=== PATIENT | female | born 1955 ===

== ENCOUNTER 2017-01-31 20:24 | Emergency (ER) | payer MEDICAID, OTHER ==
[2017-01-31] MEDS ORDERED: Sodium Chloride 0.9% 1,000 ML IV ONE (20:55)
[2017-01-31] MEDS ORDERED: Sodium Chloride 0.9% 1,000 ML ONE (21:06)
[2017-01-31 21:28] VITALS: RESP 18; O2SAT 98
[2017-01-31 21:30] LABS: BASO # 0.1 K/uL (0.0-0.2); BASO % 0.9 % (0.0-2.0); EOS # 0.2 K/uL (0.0-0.7); EOS % 2.5 % (0.0-4.0); HEMATOCRIT 36.8 % (34.0-47.0); LYMPH # 2.6 K/uL (1.0-4.3); LYMPH % 41.1 % (20.0-40.0); MEAN CELL VOLUME 88.5 fL (81.0-99.0); MEAN CORPUSCULAR HGB CONC 32.7 g/dL (33.0-37.0); MEAN PLATELET VOLUME 10.4 fL (7.2-11.7); MONO # 0.6 K/uL (0.0-0.8); MONO % 8.7 % (0.0-10.0); RED CELL DISTRIBUTION WIDTH 14.8 % (11.5-14.5); WHITE BLOOD COUNT 6.4 K/uL (4.8-10.8)
[2017-01-31 21:34] LABS: RBC URINE < 1 /hpf (0-3); URINE BACTERIA RARE (<OCC); URINE BILIRUBIN NEGATIVE (NEGATIVE); URINE BLOOD NEGATIVE (NEGATIVE); URINE COLOR Yellow (YELLOW); URINE GLUCOSE (UA) 3+ mg/dL (Normal); URINE KETONE NEGATIVE (NEGATIVE); URINE PROTEIN NEGATIVE (NEGATIVE); WBC URINE 3 /hpf (0-5)
[2017-01-31 21:39] LABS: CHLORIDE 98 mmol/L (98-107); SODIUM 135 mmol/L (132-148)
[2017-01-31 21:40] LABS: POTASSIUM 4.1 mmol/L (3.6-5.2)
[2017-01-31 21:42] LABS: ALB/GLOB RATIO 1.7 (1.0-2.1); ALKALINE PHOSPHATASE 83 U/L (38-126); ALT/SGPT 32 U/L (9-52); AST/SGOT 21 U/L (14-36); BILIRUBIN,TOTAL 0.5 mg/dL (0.2-1.3); BLOOD UREA NITROGEN 17 mg/dL (7-17); CARBON DIOXIDE 28 mmol/L (22-30); GFR AFRICAN-AMERICAN > 60; GLUCOSE,RANDOM 239 mg/dL (65-105); TOTAL PROTEIN 6.7 g/dL (6.3-8.3); URINE LEUKOCYTE ESTERASE NEGATIVE Leu/uL (Negative)
[2017-01-31 21:43] LABS: ALCOHOL SERUM < 10 mg/dl (0-10); CALCIUM 9.1 mg/dl (8.6-10.4)
--- NOTE | 2017-01-31 22:29 | C.PDOC ---
History Of Present Illness 61 year old female who presents to the ER for a complaint of a colicky epigastric pain that began today ands lasted 45 minutes. Patient has a Hx of panic disorder; denies nausea, vomiting, fever, or chills. Time Seen by Provider: 01/31/17 20:50 Chief Complaint (Nursing): Abdominal Pain History Per: Patient History/Exam Limitations: no limitations Onset/Duration Of Symptoms: Mins Current Symptoms Are (Timing): Still Present Location Of Pain/Discomfort: Epigastric Radiation Of Pain To:: None Quality Of Discomfort: Unable To Describe Associated Symptoms: denies: Fever, Chills, Nausea, Vomiting Exacerbating Factors: None Alleviating Factors: None Recent travel outside of the [place]: No Abnormal Vaginal Bleeding: No Past Medical History Reviewed: Historical Data, Nursing Documentation, Vital Signs Vital Signs: Last Vital Signs Temp 98.1 F 01/31/17 22:43 Pulse 64 01/31/17 22:43 Resp 18 01/31/17 22:43 BP 147/66 01/31/17 22:43 Pulse Ox 98 01/31/17 22:43 - Medical History PMH: Depression, Diabetes, HTN, Hypercholesterolemia Surgical History: No Surg Hx - [facility] Procedures CLOSURE SKIN & SUBCUTANEOUS NEC (06/22/14) TETANUS TOXOID ADMINIST (06/22/14) Family History: States: Unknown Family Hx - Social History Hx Tobacco Use: Yes Hx Alcohol Use: No Hx Substance Use: No - Immunization History Hx Tetanus Toxoid Vaccination: No Hx Influenza Vaccination: No Hx Pneumococcal Vaccination: No Review Of Systems Constitutional: Negative for: Fever, Chills Gastrointestinal: Positive for: Abdominal Pain. Negative for: Nausea, Vomiting Physical Exam - Physical Exam Appears: Non-toxic, Other (Tremulous, Anxious) Skin: Normal Color, Warm, Dry Head: Atraumatic, Normacephalic Oral Mucosa: Moist Chest: Symmetrical, No Tenderness Cardiovascular: Rhythm Regular, No Murmur Respiratory: Normal Breath Sounds, No Rales, No Rhonchi, No Wheezing Gastrointestinal/Abdominal: Soft, No Tenderness, Other (Obese) Neurological/Psych: Oriented x3, Normal Speech, Normal Cognition ED Course And Treatment - Laboratory Results Result Diagrams: 01/31/17 21:22 01/31/17 21:22 Lab Interpretation: Normal (lipase neg, UA neg, tox neg) O2 Sat by Pulse Oximetry: 98 (Room air) Pulse Ox Interpretation: Normal - Radiology CXR: Interpreted by Me CXR Interpretation: Yes: No Acute Disease - Other Rad abd x 2 X-Ray: Interpreted by Me (+FOS) Progress Note: Abdominal x-ray ordered. Toradol, ativan, and IV fluids administered. Reevaluation Time: 22:28 Reassessment Condition: Improved Medical Decision Making Medical Decision Making: constipation, no pancreatitis Disposition Doctor Will See Patient In The: Office Counseled Patient/Family Regarding: Studies Performed, Diagnosis - Disposition [facility]errals: [facility]Outside] [facility] Disposition: HOME/ ROUTINE Disposition Time: 22:28 Condition: GOOD Additional Instructions: compra y teri un purgante- botella de Citrato de Magnesio, ahora- y re-evalua armstrong molestia del abdomen despues de usar el ed 2-3 veces Sigue michael dieta saludable con 7 verduras y frutas crudas diarios Sigue en [facility] ([place]) Instructions: Constipation (ED) Forms: [employer] (Albanian) Print Language: DANISH - Clinical Impression Clinical Impression: Abdominal pain - Scribe Statement The provider has reviewed the documentation as recorded by the Scribe Chepe Parks All medical record entries made by the Scribe were at my direction and personally dictated by me. I have reviewed the chart and agree that the record accurately reflects my personal performance of the history, physical exam, medical decision making, and the department course for this patient. I have also personally directed, reviewed, and agree with the discharge instructions and disposition.
[2017-01-31 22:44] VITALS: BP 147/66; PULSE 64; TEMP 98.1
--- NOTE | 2017-02-01 11:34 | RAD ---
PROCEDURE: Radiographs of the chest and abdomen (obstructive series) HISTORY: abd pain COMPARISON: No prior. TECHNIQUE: AP radiograph of the chest, with upright and supine radiographs of the abdomen. FINDINGS: CHEST: Lungs: Clear. Cardiovascular: Normal size heart. No pulmonary vascular congestion. Pleura: No pleural fluid. No pneumothorax. Other findings: None. ABDOMEN AND PELVIS: Bowel: Nonobstructive bowel gas pattern is identified with prominent retained fecal material identified at the left hemicolon, moderate of the ascending colon. Free air: None. Bones: Unremarkable. Other findings: None. IMPRESSION: Nonobstructive bowel gas pattern. Prominent retained fecal material is identified in the left hemicolon. Chest radiograph appears unremarkable as discussed above.
== END 2017-01-31 22:45 | disposition home or self-care (01) ==
LOC: C.ER 20:24
DX: R10.9 Unspecified abdominal pain (principal); I10 Essential (primary) hypertension; E11.9 Type 2 diabetes mellitus without complications; E78.00 Pure hypercholesterolemia, unspecified; F17.210 Nicotine dependence, cigarettes, uncomplicated
CPT/HCPCS: 74022; 80053; 80320; 80324; 80345; 80346; 80349; 80353; 80358; 80361; 81001; 82948; 83690; 83992; 84703; 85025; 96361; 96374; 96375; 99285; J1885; J2060; J7040

== ENCOUNTER 2017-02-18 06:20 | Day surgery (SDC) | payer OTHER ==
[2017-02-18 07:27] VITALS: O2SAT 100
[2017-02-18] MEDS ORDERED: Propofol 10 mg/ml Inj (20 ML) ONE (08:39)
--- NOTE | 2017-02-18 08:45 | CP.SDSHP ---
Same Day Surgery H & P - History Proposed Procedure: egd Pre-Op Diagnosis: epigastric pain/tenderness - Previous Medical/Surgical History Cardiac: Hypertension, Other (hypercholesterolemia, Gastritis) Endocrine/Metabolic: Diabetes Misc: Other (Gerd, Fibromyalgia, Colon polyps, DJD) Pain: 3. - Allergies Allergies: Allergies Penicillins Allergy (Verified 02/18/17 07:02) RASH - Physical Exam Vital Signs: Vital Signs 02/18/17 06:45 Temperature 97.8 F Pulse Rate 69 Respiratory 19 Rate Blood Pressure 121/58 L O2 Sat by Pulse 100 Oximetry Mental Status: Alert & Oriented x3 Neuro: WNL Heart: WNL Lungs: WNL GI: WNL - Impression Impression: epigastric pain/tenderness Pt. Evaluated Today:Candidate for Anesthesia & Procedure: Yes - Date & Time Date: 02/18/17 Time: 08:44 Short Stay Discharge - Short Stay Discharge Admitting Diagnosis/Reason for Visit: EPIGASTRIC PAIN,EPIGASTRIC ABDOMINAL TENDERNESS,GA Disposition: HOME/ ROUTINE
[2017-02-18 10:38] VITALS: TEMP 97
[2017-02-18 10:41] VITALS: PULSE 65; RESP 20
[2017-02-18 10:53] VITALS: BP 128/52
== END 2017-02-18 10:54 | disposition home or self-care (01) ==
LOC: C.ENDO 06:20
PROVIDERS: ATTEND Internal Medicine Gastroenterology
DX: K21.0 Gastro-esophageal reflux disease with esophagitis (principal); R10.816 Epigastric abdominal tenderness; K29.60 Other gastritis without bleeding; M79.7 Fibromyalgia
CPT/HCPCS: 43239; 82948; 88305; 88312; 88313; 88342; J2704; J3010

== ENCOUNTER 2017-09-18 11:08 | Emergency (ER) | payer MEDICAID, OTHER ==
[2017-09-18 11:18] VITALS: O2SAT 99
[2017-09-18] MEDS ORDERED: Albuterol-Ipratrop 3 mg / 0.5 (3 ml) UD IH STA (12:00)
[2017-09-18] MEDS ORDERED: Albuterol-Ipratrop 3 mg / 0.5 (3 ml) UD ONE (12:07)
--- NOTE | 2017-09-18 13:18 | C.PDOC ---
History Of Present Illness The patient reports 1 week history of cough, nasal congestion, which is associated with bodyaches. Patient also reports that she has been having a pain in the right elbow over the past several weeks. Denies injury/trauma, fever, nausea, vomiting, diarrhea, chest pain, SOB. Time Seen by Provider: 09/18/17 11:20 Chief Complaint (Nursing): Flu-like Symptoms History Per: Patient History/Exam Limitations: no limitations Past Medical History Reviewed: Historical Data, Nursing Documentation, Vital Signs Vital Signs: Last Vital Signs Temp 97.9 F 09/18/17 13:37 Pulse 84 09/18/17 13:37 Resp 18 09/18/17 13:37 BP 116/66 09/18/17 13:37 Pulse Ox 99 09/18/17 18:54 - Medical History PMH: Anemia, Arthritis, Colonic Polyps, Depression, Diabetes, Gastritis, HTN, Hypercholesterolemia, Osteoporosis Denies: Chronic Kidney Disease Surgical History: Endoscopy - [facility] Procedures CLOSURE SKIN & SUBCUTANEOUS NEC (06/22/14) TETANUS TOXOID ADMINIST (06/22/14) Family History: States: No Known Family Hx - Social History Hx Tobacco Use: Yes Hx Alcohol Use: No Hx Substance Use: No - Immunization History Hx Tetanus Toxoid Vaccination: No Hx Influenza Vaccination: Yes (04/2017) Hx Pneumococcal Vaccination: No Review Of Systems Constitutional: Negative for: Fever ENT: Positive for: Nose Congestion Cardiovascular: Negative for: Chest Pain Respiratory: Positive for: Cough. Negative for: Shortness of Breath Gastrointestinal: Negative for: Vomiting Musculoskeletal: Positive for: Other (elbow pain) Skin: Negative for: Rash Neurological: Negative for: Weakness, Numbness, Headache, Dizziness Physical Exam - Physical Exam Appears: Non-toxic, No Acute Distress Skin: Normal Color, Warm, Dry, No Rash Head: Atraumatic, Normacephalic Eye(s): bilateral: PERRL Nose: Normal Oral Mucosa: Moist Lips: Normal Appearing Neck: Normal ROM, Supple Cardiovascular: Rhythm Regular, Friction Rub, No Murmur Respiratory: No Decreased Breath Sounds, No Accessory Muscle Use, Wheezing ( scant, expiratory B/L) Gastrointestinal/Abdominal: Soft, No Tenderness Back: Normal Inspection, No CVA Tenderness Extremity: Normal ROM, No Deformity, No Swelling Neurological/Psych: Oriented x3, Normal Speech, Normal Motor Gait: Steady ED Course And Treatment O2 Sat by Pulse Oximetry: 99 (on RA) Pulse Ox Interpretation: Normal Disposition - Disposition Referrals: Mira Zavala [Staff Provider] - Disposition: HOME/ ROUTINE Disposition Time: 13:14 Condition: GOOD Additional Instructions: Follow up with the medical doctor within 1-2 days. Return if worsened. Prescriptions: Acetaminophen [Tylenol] 325 mg PO Q6 PRN #30 tab PRN Reason: Pain, Mild (1-3) Albuterol HFA [Ventolin HFA 90 mcg/actuation (8 g)] 1 puff IH Q6 #1 inhaler Loratadine [Claritin] 10 mg PO DAILY #10 tab predniSONE [Prednisone] 20 mg PO BID #10 tab Spacer, Inhalation [Aerochamber] 1 dev IH Q4 #1 dev Instructions: Acute Bronchitis Forms: [employer] (Slovenian) - Clinical Impression Clinical Impression: Bronchitis
[2017-09-18 13:37] VITALS: BP 116/66; PULSE 84; RESP 18; TEMP 97.9
--- NOTE | 2017-09-18 13:57 | RAD ---
HISTORY: Coughing and wheezing. COMPARISON: Comparison made with chest radiograph 01/02/2017 TECHNIQUE: Chest PA and lateral FINDINGS: LUNGS: The interstitial markings are slightly increased and coarsened with a few scattered peribronchial cuffing changes. Rule out sequela of reactive/inflammatory airway disease or viral illness. PLEURA: No significant pleural effusion identified. No pneumothorax apparent. CARDIOVASCULAR: Heart size within range of normal. OSSEOUS STRUCTURES: Mild multilevel degenerative spondylosis of the thoracic spine. . VISUALIZED UPPER ABDOMEN: Normal. OTHER FINDINGS: None. IMPRESSION: The interstitial markings are slightly increased and coarsened with a few scattered peribronchial cuffing changes. Rule out sequela of reactive/inflammatory airway disease or viral illness.
--- NOTE | 2017-09-18 14:08 | RAD ---
PROCEDURE: Radiographs of the right elbow dated 09/18/2017. HISTORY: Elbow pain. Lateral elbow tenderness COMPARISON: No prior. FINDINGS: BONES: No definitive radiographic evidence of acute displaced fracture nor dislocation. No obvious cortical destructive changes. Joints Suspect minor osteophyte formation arising from the coronoid process of the right ulna SOFT TISSUES: Normal. JOINT EFFUSION: No significant joint effusion OTHER FINDINGS: None. IMPRESSION: No evidence of acute displaced fracture nor dislocation. Suspect minor DJD. If symptoms persist or occult fracture suspected clinically recommend repeat radiographs in 5-10 days as most fractures should become radiographically evident in this timeframe. Alternately, if pain persist or worsen consider follow-up MRI
== END 2017-09-18 14:13 | disposition home or self-care (01) ==
LOC: C.ER 11:08
DX: J40 Bronchitis, not specified as acute or chronic (principal); E11.649 Type 2 diabetes mellitus with hypoglycemia without coma; E78.00 Pure hypercholesterolemia, unspecified; I10 Essential (primary) hypertension; Z72.0 Tobacco use

== ENCOUNTER 2017-12-02 06:09 | Day surgery (SDC) | payer OTHER ==
[2017-12-02 07:09] VITALS: BMI 22.8
[2017-12-02] MEDS ORDERED: Propofol 10 mg/ml Inj (20 ML) ONE (07:57)
[2017-12-02] MEDS ORDERED: Phenylephrine 10 mg/ml Inj ONE (08:02)
--- NOTE | 2017-12-02 08:03 | CP.SDSHP ---
Same Day Surgery H & P - History Proposed Procedure: colonoscopy Pre-Op Diagnosis: family h/o colon cancer - Previous Medical/Surgical History Cardiac: Hypertension, Other (hyperlipidemia, fibromyalgia, gerd, gastritis, colon polyps) Endocrine/Metabolic: Diabetes Misc: Other (DJD) - Allergies Allergies: Allergies Penicillins Allergy (Verified 09/18/17 11:18) RASH - Physical Exam Vital Signs: Vital Signs 12/02/17 07:08 Temperature 97.7 F Pulse Rate 75 Respiratory 16 Rate Blood Pressure 114/82 O2 Sat by Pulse 98 Oximetry Mental Status: Alert & Oriented x3 Neuro: WNL Heart: WNL Lungs: WNL GI: WNL - Impression Impression: family h/o colon cancer. h/o colon polyps Pt. Evaluated Today:Candidate for Anesthesia & Procedure: Yes - Date & Time Date: 12/02/17 Time: 08:03 Short Stay Discharge - Short Stay Discharge Admitting Diagnosis/Reason for Visit: LEFT LOWER QUADRANT, CHANGE IN BOWEL HABIT , FAMIL Disposition: HOME/ ROUTINE Referrals: Parvez Goldstein MD [Primary Care Provider] -
[2017-12-02] MEDS ORDERED: ePHEDrine 50 mg/ml Inj ONE (08:25)
[2017-12-02 08:40] VITALS: TEMP 97.8
[2017-12-02 09:18] VITALS: RESP 15; O2SAT 100
[2017-12-02 10:43] VITALS: BP 115/57; PULSE 70
== END 2017-12-02 10:41 | disposition home or self-care (01) ==
LOC: C.ENDO 06:09
PROVIDERS: ATTEND Internal Medicine Gastroenterology
DX: Z12.11 Encounter for screening for malignant neoplasm of colon (principal); Z80.0 Family history of malignant neoplasm of digestive organs; E11.9 Type 2 diabetes mellitus without complications; E78.5 Hyperlipidemia, unspecified; I10 Essential (primary) hypertension; K21.9 Gastro-esophageal reflux disease without esophagitis; M79.7 Fibromyalgia; Z86.010 Personal history of colon polyps; Z88.0 Allergy status to penicillin
CPT/HCPCS: 45378; 82948; J2370; J2704

== ENCOUNTER 2018-06-12 07:50 | Outpatient (CLI) | payer OTHER | END 2018-06-12 07:51 | disposition home or self-care (01) | LOC: C.RADH 07:50 | DX: R10.32 Left lower quadrant pain (principal) ==

== ENCOUNTER 2018-07-31 08:08 | Outpatient (CLI) | payer OTHER | END 2018-07-31 08:09 | disposition home or self-care (01) | LOC: C.LAB 08:08 | DX: E11.9 Type 2 diabetes mellitus without complications (principal); E55.9 Vitamin D deficiency, unspecified ==